=== PATIENT | female | born 1980 | race African-American/Black ===

== ENCOUNTER 2023-09-26 19:14 | Emergency (ER) | payer OTHER ==
[2023-09-26 19:31] VITALS: BP 170/92; PULSE 82; RESP 18; TEMP 98.2; BMI 25.0
[2023-09-26] MEDS ORDERED: RABIES IMMUNE GLOBULIN 300 UNITS/1 ML VIAL IM ONE (20:02)
[2023-09-26] MEDS ORDERED: RABIES VACCINE (PCEC)/PF 2.5 UNIT/VIAL IM ONE (20:05)
[2023-09-26] MEDS ORDERED: AMOX TR/POT CLAV 875MG/125MG TABLETS (FP) PO ONE (22:26)
[2023-09-26] MEDS ORDERED: AMOX TR/POT CLAV 875MG/125MG TABLETS (FP) ONE (22:37)
[2023-09-26] MEDS ORDERED: BACITRACIN 0.9 GM PACKET ONE (23:06)
[2023-09-26] MEDS ORDERED: BACITRACIN ZINC 15 GM TUBE TOPICAL OINTMENT ONE (23:07)
== END 2023-09-26 22:59 | disposition home or self-care (01) ==
LOC: JER 19:14
PROC: 3E0234Z Introduction of Serum, Toxoid and Vaccine into Muscle, Percutaneous Approach (ICD-10-PCS; principal; 2023-09-26)
PROC: 3E0234Z Introduction of Serum, Toxoid and Vaccine into Muscle, Percutaneous Approach (ICD-10-PCS; 2023-09-26)
DX: S71.151A Open bite, right thigh, initial encounter (principal); W54.0XXA Bitten by dog, initial encounter; Y92.512 Supermarket, store or market as the place of occurrence of the external cause
CPT/HCPCS: 73552-TC-RT-FY; 90375; 90675; 99284-25

== ENCOUNTER 2023-09-29 21:17 | Emergency (ER) | payer OTHER ==
[2023-09-29 21:29] VITALS: BP 148/92; PULSE 85; RESP 20; TEMP 98.2; BMI 25.0
[2023-09-29] MEDS ORDERED: RABIES VACCINE (PCEC)/PF 2.5 UNIT/VIAL IM ONE (22:50)
[2023-09-29] MEDS: RABIES VACCINE (PCEC)/PF 2.5 UNIT/VIAL IM ONE (22:50)
== END 2023-09-29 22:56 | disposition home or self-care (01) ==
LOC: JER 21:17 → JERFT 21:17
PROC: 3E0234Z Introduction of Serum, Toxoid and Vaccine into Muscle, Percutaneous Approach (ICD-10-PCS; principal; 2023-09-29)
DX: Z23 Encounter for immunization (principal)
CPT/HCPCS: 90675; 99281-25